=== PATIENT | female | born 1985 ===

== ENCOUNTER 2019-02-11 14:03 | Emergency (ER) | payer OTHER ==
[2019-02-11 15:12] VITALS: O2SAT 99
--- NOTE | 2019-02-11 16:03 | ED PDOC ---
HPI: Abdomen Time Seen by Provider: 02/11/19 15:00 Chief Complaint (Nursing): Abdominal Pain Chief Complaint (Provider): Abdominal pain History Per: Patient, News Copy Editor (YOLANDASOCORROChristopher PachecoPaving Rammer #[id number]) History/Exam Limitations: no limitations Onset/Duration Of Symptoms: Hrs Outside of [place] travel?: No Current Symptoms Are (Timing): Still Present Location Of Pain/Discomfort: Diffuse Quality Of Discomfort: "Pain" Associated Symptoms: Nausea, Loss Of Appetite. denies: Fever, Chills, Vomiting, Diarrhea Additional History Per: Patient Additional Complaint(s): 33yo female, otherwise well, comes to ER reporting diffuse abdominal pain since this morning. Patient reports associated nausea and generalized weakness, denies any vomiting or diarrhea. She has not taken any medications and states has only been able to tolerate minimal PO intake. No complaints. PMD: None LMP: 2 weeks ago Abnormal Vaginal Bleeding: No Last Menstral Period: 2 weeks ago Past Medical History Reviewed: Historical Data, Nursing Documentation, Vital Signs Vital Signs: Last Vital Signs Temp 98.5 F 02/11/19 15:10 Pulse 102 H 02/11/19 15:10 Resp 20 02/11/19 15:10 BP 137/88 02/11/19 15:10 Pulse Ox 99 02/11/19 15:10 Primary Care Provider: DoctorBraulio - Medical History PMH: No Chronic Diseases - Surgical History Surgical History: No Surg Hx - Family History Family History: States: No Known Family Hx - Social History Current smoker - smoking cessation education provided: No Alcohol: None Drugs: Denies - Home Medications Home Medications: Ambulatory Orders Medication Instructions Recorded Acetaminophen/Butalbital/Caf 1 - 2 tab PO Q6 PRN #20 tab 04/27/16 [Fioricet] Ondansetron ODT [Zofran ODT] 4 mg PO Q6 PRN #16 odt 04/27/16 Nitrofurantoin Macrocrystals 100 mg PO BID #14 cap 02/11/19 [Macrobid] - Allergies Allergies/Adverse Reactions: Allergies Allergy/AdvReac Type Severity Reaction Status Date / Time No Known Allergies Allergy Verified 02/11/19 15:10 Review of Systems ROS Statement: Except As Marked, All Systems Reviewed And Found Negative Constitutional: Positive for: Weakness. Negative for: Fever, Chills Gastrointestinal: Positive for: Nausea, Abdominal Pain. Negative for: Vomiting, Diarrhea Genitourinary Female: Negative for: Dysuria, Frequency, Hematuria Physical Exam - Reviewed Nursing Documentation Reviewed: Yes Vital Signs Reviewed: Yes - Physical Exam Appears: Positive for: Non-toxic, No Acute Distress Head Exam: Positive for: ATRAUMATIC, NORMAL INSPECTION, NORMOCEPHALIC Skin: Positive for: Normal Color Eye Exam: Positive for: Normal appearance ENT: Positive for: Normal ENT Inspection Neck: Positive for: Normal, Supple Cardiovascular/Chest: Positive for: Regular Rate, Rhythm Respiratory: Positive for: Normal Breath Sounds. Negative for: Respiratory Distress Gastrointestinal/Abdominal: Positive for: Bowel Sounds (good bowel sounds), Soft. Negative for: Tenderness, Guarding, Rebound Back: Positive for: Normal Inspection. Negative for: L CVA Tenderness, R CVA Tenderness Extremity: Positive for: Normal ROM. Negative for: Pedal Edema Neurological/Psych: Positive for: Awake, Alert - Laboratory Results Result Diagrams: 02/11/19 16:10 02/11/19 16:10 - ECG O2 Sat by Pulse Oximetry: 99 (RA) Pulse Ox Interpretation: Normal Medical Decision Making Medical Decision Making: Impression: Abdominal pain since this morning, no focal tenderness on abdominal exam. pt slightly tachycardic. will check urine, ct, labs for rule out electrolyte abnormality, dehydration Plan: -- Labs -- Urinalysis -- CT Abdomen/Pelvis 1723 PROCEDURE: CT Abdomen and Pelvis without Oral or IV contrast. HISTORY: abd pain COMPARISON: None available. TECHNIQUE: Contiguous axial images of the abdomen and pelvis. No oral or IV contrast administered. Coronal and Sagittal reformats generated and reviewed. Radiation dose: Total exam DLP = 324.03 mGy-cm. This CT exam was performed using one or more of the following dose reduction te chniques: Automated exposure control, adjustment of the mA and/or kV according to patient size, and/or use of iterative reconstruction technique. FINDINGS: There is limited evaluation of the solid organs without the administration of IV contrast. LOWER THORAX: No visible consolidation, pleural effusion, or pneumothorax. LIVER: Unremarkable unenhanced appearance. GALLBLADDER AND BILE DUCTS: Unremarkable unenhanced appearance. PANCREAS: Unremarkable unenhanced appearance. SPLEEN: Mm probable splenule. Otherwise unremarkable unenhanced appearance. ADRENALS: Unremarkable unenhanced appearance. KIDNEYS AND URETERS: No hydronephrosis or obstructing renal calculus. BLADDER: The urinary bladder appears unremarkable. REPRODUCTIVE: Uterus is present. APPENDIX: The appendix appears within normal limits of caliber. No secondary signs of acute appendicitis. BOWEL: The stomach is nondistended. Lack of oral contrast limits evaluation for bowel pathology. The bowel loops appear within normal limits of caliber without evidence of intestinal obstruction. PERITONEUM: No significant free fluid. No definite free air. LYMPH NODES: No bulky lymphadenopathy identified. VASCULATURE: No significant atherosclerotic calcifications of the aorta identified. No aortic aneurysm. BONES: No acute osseous abnormality is detected. OTHER FINDINGS: None. IMPRESSION: No acute findings identified. UA positive for uti. pt aware. 1810 Patient diagnosed with UTI and no other sources were found. Patient prescribed Macrobid (first dose here, tolerated po) and discharged home. Upon provider evaluation patient is medically stable, and requires no further treatment in the ED at this time. Patient will be discharged with Macrobid. Counseling was provided and all questions were answered regarding diagnosis. There is agreement to discharge plan. Return if symptoms persist or worsen. ScribeAttestation: Documented byCherri Sanchez acting as a scribe for Jeanine Russell MD. Provider ScribeAttestation: All medical record entries made by the Scribe were at my direction and personally dictated by me. I have reviewed the chart and agree that the record accurately reflects my personal performance of the history, physical exam, medical decision making, and the department course for this patient. I have also personally directed, reviewed, and agree with the discharge instructions and disposition. Disposition - Clinical Impression Clinical Impression: UTI (urinary tract infection) - Patient ED Disposition Is Patient to be Admitted: No Counseled Patient/Family Regarding: Studies Performed, Diagnosis, Need For Followup - Disposition Referrals: [facility] [Outside] [facility] [Outside] Disposition: Routine/Home Disposition Time: 18:10 Condition: IMPROVED Additional Instructions: follow up with the clinic in 1-2 days return to the ED with any worsening or concerning symptoms Prescriptions: Nitrofurantoin Macrocrystals [Macrobid] 100 mg PO BID #14 cap Instructions: Urinary Tract Infections in Adults Forms: [facility] (Liberian) Print Language: CITIZEN OF [place]
[2019-02-11 16:59] LABS: BASO % 0.2 % (0.0-2.0); EOS % 0.2 % (0.0-4.0); HEMOGLOBIN 13.7 g/dL (12.0-16.0); LYMPH # 0.8 K/uL (1.0-4.3); LYMPH % 5.5 % (20.0-40.0); MEAN CELL VOLUME 89.3 fl (81.0-99.0); MEAN CORPUSCULAR HGB CONC 33.6 g/dL (33.0-37.0); MEAN PLATELET VOLUME 8.2 fl (7.2-11.7); MONO # 0.6 K/uL (0.0-0.8); MONO % 4.3 % (0.0-10.0); NEUT % 89.8 % (50.0-75.0); NRBC % 0.1 % (0.0-0.0); PLATELET COUNT 242 K/uL (130-400); RBC 4.58 Mil/uL (3.80-5.20); RED CELL DISTRIBUTION WIDTH 13.6 % (11.5-14.5); WHITE BLOOD COUNT 14.5 K/uL (4.8-10.8)
[2019-02-11 17:06] LABS: SQUAMOUS EPITHIAL 16 /hpf (0-5); URINE BACTERIA RARE (<OCC); URINE BILIRUBIN NEGATIVE (NEGATIVE); URINE BLOOD NEGATIVE (NEGATIVE); URINE CLARITY CLOUDY (Clear); URINE COLOR YELLOW (YELLOW); URINE GLUCOSE (UA) NEG (NEGATIVE); URINE LEUKOCYTE ESTERASE MOD Leu/uL (Negative); URINE PROTEIN 100 mg/dL (NEGATIVE); URINE UROBILINOGEN 0.2-1.0 mg/dL (0.2-1.0)
[2019-02-11 17:13] LABS: ALB/GLOB RATIO 1.5 (1.0-2.1); ALBUMIN 4.3 g/dL (3.5-5.0); ALT/SGPT 30 U/L (9-52); AST/SGOT 47 U/L (14-36); BLOOD UREA NITROGEN 12 mg/dl (7-17); CALCIUM 8.5 mg/dL (8.4-10.2); GFR NON-AFRICAN AMERICAN > 60
--- NOTE | 2019-02-11 17:27 | CT ---
PROCEDURE: CT Abdomen and Pelvis without Oral or IV contrast. HISTORY: abd pain COMPARISON: None available. TECHNIQUE: Contiguous axial images of the abdomen and pelvis. No oral or IV contrast administered. Coronal and Sagittal reformats generated and reviewed. Radiation dose: Total exam DLP = 324.03 mGy-cm. This CT exam was performed using one or more of the following dose reduction techniques: Automated exposure control, adjustment of the mA and/or kV according to patient size, and/or use of iterative reconstruction technique. FINDINGS: There is limited evaluation of the solid organs without the administration of IV contrast. LOWER THORAX: No visible consolidation, pleural effusion, or pneumothorax. LIVER: Unremarkable unenhanced appearance. GALLBLADDER AND BILE DUCTS: Unremarkable unenhanced appearance. PANCREAS: Unremarkable unenhanced appearance. SPLEEN: Mm probable splenule. Otherwise unremarkable unenhanced appearance. ADRENALS: Unremarkable unenhanced appearance. KIDNEYS AND URETERS: No hydronephrosis or obstructing renal calculus. BLADDER: The urinary bladder appears unremarkable. REPRODUCTIVE: Uterus is present. APPENDIX: The appendix appears within normal limits of caliber. No secondary signs of acute appendicitis. BOWEL: The stomach is nondistended. Lack of oral contrast limits evaluation for bowel pathology. The bowel loops appear within normal limits of caliber without evidence of intestinal obstruction. PERITONEUM: No significant free fluid. No definite free air. LYMPH NODES: No bulky lymphadenopathy identified. VASCULATURE: No significant atherosclerotic calcifications of the aorta identified. No aortic aneurysm. BONES: No acute osseous abnormality is detected. OTHER FINDINGS: None. IMPRESSION: No acute findings identified.
[2019-02-11] MEDS ORDERED: Sodium Chloride 0.9% 1,000 ML IV STA (17:42)
[2019-02-11 18:09] LABS: BANDS 4 % (0-2); EOSINOPHIL 1 % (0-7); HYPOCHROMIC SLIGHT; LYMPHOCYTE 8 % (20-50); MONOCYTE 6 % (0-10); NEUTROPHIL 81 % (42-75); PLATELET ESTIMATE NORMAL (NORMAL); TOTAL CELLS COUNTED 100
[2019-02-11 18:27] VITALS: BP 125/80; PULSE 75; RESP 16; TEMP 97.9
== END 2019-02-11 18:27 | disposition home or self-care (01) ==
LOC: H.ER 14:03
DX: N39.0 Urinary tract infection, site not specified (principal); R10.9 Unspecified abdominal pain
CPT/HCPCS: 74176; 80053; 81003; 81025; 85025; 87086; 99283; J7030

== ENCOUNTER 2019-03-12 17:58 | Inpatient (IN) | payer SELFPAY ==
[2019-03-12] MEDS ORDERED: Sodium Chloride 0.9% 1,000 ML IV STA (19:57)
[2019-03-12 20:17] LABS: BASO % 0.3 % (0.0-2.0); EOS % 0.2 % (0.0-4.0); HEMOGLOBIN 13.6 g/dL (12.0-16.0); LYMPH # 1.5 K/uL (1.0-4.3); LYMPH % 11.1 % (20.0-40.0); MEAN CELL VOLUME 88.7 fl (81.0-99.0); MEAN CORPUSCULAR HEMOGLOBIN 29.9 pg (27.0-31.0); MEAN CORPUSCULAR HGB CONC 33.7 g/dL (33.0-37.0); MEAN PLATELET VOLUME 7.3 fl (7.2-11.7); MONO # 0.6 K/uL (0.0-0.8); MONO % 4.4 % (0.0-10.0); NEUT # 11.3 K/uL (1.8-7.0); RBC 4.56 Mil/uL (3.80-5.20); RED CELL DISTRIBUTION WIDTH 13.6 % (11.5-14.5); WHITE BLOOD COUNT 13.5 K/uL (4.8-10.8)
[2019-03-12 20:20] LABS: SQUAMOUS EPITHIAL 3 /hpf (0-5); URINE BILIRUBIN NEGATIVE (NEGATIVE); URINE BLOOD NEGATIVE (NEGATIVE); URINE CLARITY SLIGHTY-CLOUDY (Clear); URINE COLOR YELLOW (YELLOW); URINE GLUCOSE (UA) NEG (NEGATIVE); URINE LEUKOCYTE ESTERASE NEG Leu/uL (Negative); URINE PROTEIN 30 mg/dL (NEGATIVE); URINE UROBILINOGEN 0.2-1.0 mg/dL (0.2-1.0)
[2019-03-12 20:24] LABS: VENOUS BLOOD GAS BASE EXCESS 0.9 mmol/L (0.0-2.0); VENOUS BLOOD GAS PCO2 51 mmHg (40-60); VENOUS BLOOD GAS PO2 23 mm/Hg (30-55); VENOUS BLOOD PH 7.34 (7.32-7.43)
[2019-03-12 21:02] LABS: ALB/GLOB RATIO 1.5 (1.0-2.1); ALBUMIN 4.4 g/dL (3.5-5.0); ALT/SGPT 37 U/L (9-52); AST/SGOT 43 U/L (14-36); BLOOD UREA NITROGEN 16 mg/dl (7-17); CALCIUM 8.8 mg/dL (8.4-10.2); GFR NON-AFRICAN AMERICAN > 60
--- NOTE | 2019-03-12 21:48 | ED PDOC ---
HPI: Abdomen Time Seen by Provider: 03/12/19 19:56 Chief Complaint (Nursing): Abdominal Pain Chief Complaint (Provider): Abdominal Pain History Per: Patient History/Exam Limitations: no limitations Onset/Duration Of Symptoms: Days (x1) Current Symptoms Are (Timing): Still Present Additional Complaint(s): 33 year old female presents with lower abdominal pain associated with nonbloody, nonbilious vomiting and nausea that worsen today. She additionally reports unable to tolerate PO well. No reports of urinary complaints or vaginal discharge. Past Medical History Reviewed: Historical Data, Nursing Documentation, Vital Signs Vital Signs: Last Vital Signs Temp 98 F 03/12/19 18:50 Pulse 86 03/12/19 18:50 Resp 16 03/12/19 18:50 BP 132/90 03/12/19 18:50 Pulse Ox 98 03/12/19 18:50 Primary Care Provider: FAMILY PROVIDER,NO - Medical History PMH: No Chronic Diseases - Surgical History Surgical History: No Surg Hx - Family History Family History: States: Unknown Family Hx - Home Medications Home Medications: Ambulatory Orders Medication Instructions Recorded Acetaminophen/Butalbital/Caf 1 - 2 tab PO Q6 PRN #20 tab 04/27/16 [Fioricet] Ondansetron ODT [Zofran ODT] 4 mg PO Q6 PRN #16 odt 04/27/16 Nitrofurantoin Macrocrystals 100 mg PO BID #14 cap 02/11/19 [Macrobid] Penicillin VK [Penicillin VK Tab] 1 tab PO TID #15 tab 02/13/19 - Allergies Allergies/Adverse Reactions: Allergies Allergy/AdvReac Type Severity Reaction Status Date / Time No Known Allergies Allergy Verified 02/11/19 15:10 Review of Systems ROS Statement: Except As Marked, All Systems Reviewed And Found Negative Gastrointestinal: Positive for: Vomiting (NBNB), Abdominal Pain (lower), Other (decreased appetite) Genitourinary Female: Negative for: Dysuria, Incontinence, Hematuria, Vaginal Discharge Physical Exam - Reviewed Nursing Documentation Reviewed: Yes Vital Signs Reviewed: Yes - Physical Exam Appears: Positive for: Uncomfortable (visibly) Head Exam: Positive for: ATRAUMATIC, NORMAL INSPECTION, NORMOCEPHALIC Skin: Positive for: Normal Color Eye Exam: Positive for: Normal appearance ENT: Positive for: Normal ENT Inspection. Negative for: Pharyngeal Erythema Neck: Positive for: Normal Cardiovascular/Chest: Positive for: Regular Rate, Rhythm Respiratory: Positive for: Normal Breath Sounds. Negative for: Respiratory Distress Gastrointestinal/Abdominal: Positive for: Soft, Tenderness (lower L > R; periumbilical) Pelvic Exam: Positive for: Discharge (Thick purulent), Tender W/Cervical Motion, Tender Adnexa (Left). Negative for: Other (Erythema of cervix) Back: Positive for: Normal Inspection. Negative for: L CVA Tenderness, R CVA Tenderness Extremity: Positive for: Normal ROM (upper/lower) Neurological/Psych: Positive for: Awake, Alert, Normal Tone - Laboratory Results Result Diagrams: 03/12/19 20:12 03/12/19 20:12 Lab Results: pO2 23 mm/Hg (30-55) L 03/12/19 20:20 VBG pH 7.34 (7.32-7.43) 03/12/19 20:20 VBG pCO2 51 mmHg (40-60) 03/12/19 20:20 VBG HCO3 24.0 mmol/L 03/12/19 20:20 VBG Total CO2 29.1 mmol/L (22-28) H 03/12/19 20:20 VBG O2 Sat (Calc) 44.0 % (40-65) 03/12/19 20:20 VBG Base Excess 0.9 mmol/L (0.0-2.0) 03/12/19 20:20 VBG Potassium 3.8 mmol/L (3.6-5.2) 03/12/19 20:20 Sodium 134.0 mmol/L (132-148) 03/12/19 20:20 Chloride 102.0 mmol/L (98-107) 03/12/19 20:20 Glucose 109 mg/dL (65-105) H 03/12/19 20:20 Lactate 1.1 mmol/L (0.7-2.1) 03/12/19 20:20 FiO2 21.0 % 03/12/19 20:20 Total Bilirubin 0.3 mg/dl (0.2-1.3) 03/12/19 20:12 AST 43 U/L (14-36) H 03/12/19 20:12 ALT 37 U/L (9-52) 03/12/19 20:12 Alkaline Phosphatase 72 U/L (38-126) 03/12/19 20:12 Total Protein 7.4 G/DL (6.3-8.2) 03/12/19 20:12 Albumin 4.4 g/dL (3.5-5.0) 03/12/19 20:12 Globulin 2.9 gm/dL (2.2-3.9) 03/12/19 20:12 Albumin/Globulin Ratio 1.5 (1.0-2.1) 03/12/19 20:12 Urine Color Yellow (YELLOW) 03/12/19 20:12 Urine Clarity Slighty-cloudy (Clear) 03/12/19 20:12 Urine pH 6.0 (5.0-8.0) 03/12/19 20:12 Ur Specific [place] 1.021 (1.003-1.030) 03/12/19 20:12 Urine Protein 30 mg/dL (NEGATIVE) 03/12/19 20:12 Urine Glucose (UA) Neg mg/dL (NEGATIVE) 03/12/19 20:12 Urine Ketones Negative mg/dL (NEGATIVE) 03/12/19 20:12 Urine Blood Negative (NEGATIVE) 03/12/19 20:12 Urine Nitrate Negative (NEGATIVE) 03/12/19 20:12 Urine Bilirubin Negative (NEGATIVE) 03/12/19 20:12 Urine Urobilinogen 0.2-1.0 mg/dL (0.2-1.0) 03/12/19 20:12 Ur Leukocyte Esterase Neg Chava/uL (Negative) 03/12/19 20:12 Urine RBC (Auto) 1 /hpf (0-3) 03/12/19 20:12 Urine Microscopic WBC 2 /hpf (0-5) 03/12/19 20:12 Ur Squamous Epith Cells 3 /hpf (0-5) 03/12/19 20:12 - ECG O2 Sat by Pulse Oximetry: 98 (RA) Pulse Ox Interpretation: Normal Medical Decision Making Medical Decision Making: Time: 1955 Initial Plan: work up for severe, worsening abdominal pain. * Labs including UA * IV fluids * Zofran inj IVP * CT ABD/pelvis * Morphine IVP 2251 CT Adomen/Pelvis W IV Contrast FINDINGS: LUNG BASES: The lung bases appear clear. No pleural effusions are seen. LIVER: Unremarkable. GALLBLADDER AND BILE DUCTS: The gallbladder appears within normal limits. No radioopaque gallstones are seen. No biliary ductal dilatation is evident. PANCREAS: Unremarkable. SPLEEN: Unremarkable. ADRENAL GLANDS: Unremarkable. KIDNEYS, URETERS, AND BLADDER: The kidneys appear within normal limits. There is no hydronephrosis or hydroureter. No urinary calculi are seen. The urinary bladder appeared normal in size and configuration. STOMACH AND BOWEL: Diffuse gastric wall thickening compatible with gastritis. No evidence of bowel obstruction. There is mucosal wall thickening of the small intestinal tract with fluid in the lumen compatible with diffuse enteritis. APPENDIX: No evidence of acute appendicitis on CT examination. PERITONEUM: No free fluid. No free air. LYMPH NODES: No lymphadenopathy is evident. REPRODUCTIVE: There is inflammatory haziness identified in the mesosalpinx bilaterally thought consistent with bilateral salpingitis. A 1.5 cm left ovarian cyst is noted. VASCULATURE: No evidence of abdominal aortic aneurysm. BONES: No aggressive appearing osseous lesion. No acute osseous pathology evident. IMPRESSION: 1. Gastroenteritis. 2. Findings suggestive of bilateral salpingitis. 3. A 1.5 cm left ovarian cyst is noted. 2342 Pelvic exam shows cervical motion tenderness and left adnexa tenderness with thick purulent discharge. No erythema of cervix. Antibiotics given for PID. 0010 Patient signed out to Dr. Arredondo, pending UNDERWRITER SOLICITATION DIRECTOR evaluation. Scribe Attestation: Documented by Katelyn Miller, acting as a scribe for Mayra Maria MD. Provider Scribe Attestation: All medical record entries made by the Scribe were at my direction and personally dictated by me. I have reviewed the chart and agree that the record accurately reflects my personal performance of the history, physical exam, medical decision making, and the department course for this patient. I have also personally directed, reviewed, and agree with the discharge instructions and disposition. Disposition - Patient ED Disposition Is Patient to be Admitted: Transfer of Care - Disposition Disposition: Transfer of Care Forms: [facility] (Sinhala) Patient Signed Over To: Star Arredondo
[2019-03-12] MEDS ORDERED: Iohexol 300 100 ML IJ ONE (21:58)
[2019-03-12] MEDS ORDERED: Sodium Chloride 0.9% 50 ML IV ONE (21:58)
[2019-03-12] MEDS ORDERED: cefOXitin 2 GM in Sodium Chloride 0.9% 100 ML IVPB STA (23:43)
--- NOTE | 2019-03-13 00:14 | ED PDOC ---
- Laboratory Results Result Diagrams: 03/12/19 20:12 03/12/19 20:12 Lab Results: pO2 23 mm/Hg (30-55) L 03/12/19 20:20 VBG pH 7.34 (7.32-7.43) 03/12/19 20:20 VBG pCO2 51 mmHg (40-60) 03/12/19 20:20 VBG HCO3 24.0 mmol/L 03/12/19 20:20 VBG Total CO2 29.1 mmol/L (22-28) H 03/12/19 20:20 VBG O2 Sat (Calc) 44.0 % (40-65) 03/12/19 20:20 VBG Base Excess 0.9 mmol/L (0.0-2.0) 03/12/19 20:20 VBG Potassium 3.8 mmol/L (3.6-5.2) 03/12/19 20:20 Sodium 134.0 mmol/L (132-148) 03/12/19 20:20 Chloride 102.0 mmol/L (98-107) 03/12/19 20:20 Glucose 109 mg/dL (65-105) H 03/12/19 20:20 Lactate 1.1 mmol/L (0.7-2.1) 03/12/19 20:20 FiO2 21.0 % 03/12/19 20:20 Total Bilirubin 0.3 mg/dl (0.2-1.3) 03/12/19 20:12 AST 43 U/L (14-36) H 03/12/19 20:12 ALT 37 U/L (9-52) 03/12/19 20:12 Alkaline Phosphatase 72 U/L (38-126) 03/12/19 20:12 Total Protein 7.4 G/DL (6.3-8.2) 03/12/19 20:12 Albumin 4.4 g/dL (3.5-5.0) 03/12/19 20:12 Globulin 2.9 gm/dL (2.2-3.9) 03/12/19 20:12 Albumin/Globulin Ratio 1.5 (1.0-2.1) 03/12/19 20:12 Urine Color Yellow (YELLOW) 03/12/19 20:12 Urine Clarity Slighty-cloudy (Clear) 03/12/19 20:12 Urine pH 6.0 (5.0-8.0) 03/12/19 20:12 Ur Specific [place] 1.021 (1.003-1.030) 03/12/19 20:12 Urine Protein 30 mg/dL (NEGATIVE) 03/12/19 20:12 Urine Glucose (UA) Neg mg/dL (NEGATIVE) 03/12/19 20:12 Urine Ketones Negative mg/dL (NEGATIVE) 03/12/19 20:12 Urine Blood Negative (NEGATIVE) 03/12/19 20:12 Urine Nitrate Negative (NEGATIVE) 03/12/19 20:12 Urine Bilirubin Negative (NEGATIVE) 03/12/19 20:12 Urine Urobilinogen 0.2-1.0 mg/dL (0.2-1.0) 03/12/19 20:12 Ur Leukocyte Esterase Neg Chava/uL (Negative) 03/12/19 20:12 Urine RBC (Auto) 1 /hpf (0-3) 03/12/19 20:12 Urine Microscopic WBC 2 /hpf (0-5) 03/12/19 20:12 Ur Squamous Epith Cells 3 /hpf (0-5) 03/12/19 20:12 - ECG O2 Sat by Pulse Oximetry: 98 (RA) Pulse Ox Interpretation: Normal Medical Decision Making Medical Decision Makin Patient endorsed by Dr. Maria, pending BULK TANK DRIVER evaluation. 0053 Patient evaluated by BULK TANK DRIVER service and will be admitted for salpingitis. Case was discussed with BULK TANK DRIVER resident who spoke to Dr. Banks. Scribe Attestation: Documented by Lily Diane acting as a scribe for Star Arredondo MD. Provider Scribe Attestation: All medical record entries made by the Scribe were at my direction and personally dictated by me. I have reviewed the chart and agree that the record accurately reflects my personal performance of the history, physical exam, medical decision making, and the department course for this patient. I have also personally directed, reviewed, and agree with the discharge instructions and disposition. Disposition - Clinical Impression Clinical Impression: Salpingitis - POA Present On Arrival: None - Disposition Disposition: Admitted as In-Patient Disposition Time: 00:53 Condition: FAIR
[2019-03-13] MEDS ORDERED: Morphine 4 MG/ML VIAL IVP PRN (01:04)
[2019-03-13] MEDS ORDERED: Lactated Ringer's 1,000 ML IV ONE (01:10)
--- NOTE | 2019-03-13 01:22 | CP.PCM.HP ---
<Bob Sims - Last Filed: 03/13/19 01:22> History of Present Illness - History of Present Illness History of Present Illness: 33 y/o female with no significant PMHx presents to ER complaining of lower abdominal pain. Abdominal pain started 4 pm today, suddenly increased to 10/10, continuous, not alleviated by anything and worsened by movements. Patient also has associated nausea and vomiting but denies fever, chills, vaginal discharge, vaginal bleeding, urinary symptoms or back pain. Patient is sexually active with 1 partner in past 1 year and does not use condoms consistently. Denies any H/O STIs in the past. Denies any prior pregnancies. LMP 20 days ago, regular Q 28days lasts 3-4 days. Denies any other complains at this time. Denies taking any control use. PMHx: Denies PSHx: Denies Allergies: NKDA Meds: Denies SOcial Hx: Denies smoking/alcohol/drugs F/H: Denies ED Course: VSS CBC: WBC 13.5, CMP and UA remarkable. CT abd/pelvis consistent with B/L Salpingitis. + CMT and vaginal discharge per ED note. S/P 1 dose of Cefoxitin 2 gm and Doxycycline 100 mg IV S/P Morphine 2 gm and Zofran for nausea. Pain improved but still 8/10 pain Present on Admission - Present on Admission Any Indicators Present on Admission: No History of DVT/PE: No History of Uncontrolled Diabetes: No Urinary Catheter: No Decubitus Ulcer Present: No Review of Systems - Review of Systems Systems not reviewed;Unavailable: Acuity of Condition - Gastrointestinal Gastrointestinal: Abdominal Pain, Nausea, Vomiting - Reproductive: Female Reproductive:Female: Pelvic Pain, Vaginal Discharge Past Patient History - Past Social History Smoking Status: Never Smoked - PSYCHIATRIC Hx Substance Use: No - SURGICAL HISTORY Hx Surgeries: No Meds Allergies/Adverse Reactions: Allergies Allergy/AdvReac Type Severity Reaction Status Date / Time No Known Allergies Allergy Verified 02/11/19 15:10 Physical Exam - Constitutional Appears: Non-toxic, No Acute Distress - Head Exam Head Exam: ATRAUMATIC, NORMAL INSPECTION, NORMOCEPHALIC - Eye Exam Eye Exam: EOMI, PERRL Pupil Exam: NORMAL ACCOMODATION, PERRL - ENT Exam ENT Exam: Mucous Membranes Moist - Neck Exam Neck exam: Positive for: Normal Inspection - Respiratory Exam Respiratory Exam: Clear to Auscultation Bilateral, NORMAL BREATHING PATTERN - Cardiovascular Exam Cardiovascular Exam: REGULAR RHYTHM, +S1, +S2 - GI/Abdominal Exam GI & Abdominal Exam: Guarding, Normal Bowel Sounds, Soft, Tenderness. absent: Distended - Rectal Exam Rectal Exam: Deferred - Expanded Rectal Exam Expanded Expanded Rectal Exam: Deferred - Extremities Exam Extremities exam: Positive for: normal inspection - Back Exam Back exam: NORMAL INSPECTION - Neurological Exam Neurological exam: Alert, Oriented x3 - Psychiatric Exam Psychiatric exam: Normal Affect, Normal Mood - Skin Skin Exam: Dry, Intact, Normal Color, Warm Results - Vital Signs Recent Vital Signs: Last Vital Signs Temp 98 F 03/12/19 18:50 Pulse 86 03/12/19 18:50 Resp 16 03/12/19 18:50 BP 132/90 03/12/19 18:50 Pulse Ox 98 03/13/19 00:58 - Labs Result Diagrams: 03/12/19 20:12 03/12/19 20:12 Labs: Laboratory Results - last 24 hr 03/12/19 03/12/19 03/12/19 20:12 20:12 20:12 WBC 13.5 H RBC 4.56 Hgb 13.6 Hct 40.4 MCV 88.7 MCH 29.9 MCHC 33.7 RDW 13.6 Plt Count 254 MPV 7.3 Neut % (Auto) 84.0 H Lymph % (Auto) 11.1 L [place] % (Auto) 4.4 Eos % (Auto) 0.2 Baso % (Auto) 0.3 Neut # (Auto) 11.3 H Lymph # (Auto) 1.5 [place] # (Auto) 0.6 Eos # (Auto) 0.0 Baso # (Auto) 0.0 pO2 VBG pH VBG pCO2 VBG HCO3 VBG Total CO2 VBG O2 Sat (Calc) VBG Base Excess VBG Potassium Glucose Lactate FiO2 Sodium 135 Potassium 4.1 Chloride 100 Carbon Dioxide 26 Anion Gap 13 BUN 16 Creatinine 0.7 Est GFR ( Amer) > 60 Est GFR (Non-Af Amer) > 60 Random Glucose 115 H Calcium 8.8 Total Bilirubin 0.3 AST 43 H ALT 37 Alkaline Phosphatase 72 Total Protein 7.4 Albumin 4.4 Globulin 2.9 Albumin/Globulin Ratio 1.5 Venous Blood Potassium Urine Color Yellow Urine Clarity Slighty-cloudy Urine pH 6.0 Ur Specific [place] 1.021 Urine Protein 30 Urine Glucose (UA) Neg Urine Ketones Negative Urine Blood Negative Urine Nitrate Negative Urine Bilirubin Negative Urine Urobilinogen 0.2-1.0 Ur Leukocyte Esterase Neg Urine RBC (Auto) 1 Urine Microscopic WBC 2 Ur Squamous Epith Cells 3 03/12/19 20:20 WBC RBC Hgb Hct MCV MCH MCHC RDW Plt Count MPV Neut % (Auto) Lymph % (Auto) [place] % (Auto) Eos % (Auto) Baso % (Auto) Neut # (Auto) Lymph # (Auto) [place] # (Auto) Eos # (Auto) Baso # (Auto) pO2 23 L VBG pH 7.34 VBG pCO2 51 VBG HCO3 24.0 VBG Total CO2 29.1 H VBG O2 Sat (Calc) 44.0 VBG Base Excess 0.9 VBG Potassium 3.8 Glucose 109 H Lactate 1.1 FiO2 21.0 Sodium 134.0 Potassium Chloride 102.0 Carbon Dioxide Anion Gap BUN Creatinine Est GFR ( Amer) Est GFR (Non-Af Amer) Random Glucose Calcium Total Bilirubin AST ALT Alkaline Phosphatase Total Protein Albumin Globulin Albumin/Globulin Ratio Venous Blood Potassium 3.8 Urine Color Urine Clarity Urine pH Ur Specific [place] Urine Protein Urine Glucose (UA) Urine Ketones Urine Blood Urine Nitrate Urine Bilirubin Urine Urobilinogen Ur Leukocyte Esterase Urine RBC (Auto) Urine Microscopic WBC Ur Squamous Epith Cells Assessment & Plan - Assessment and Plan (Free Text) Assessment: 33 y/o with no significant PMHx admitted for B/L salpingitis Plan: Bilateral Salpingitis - VSS, Afebrile - S/P 1 dose of Cefoxitin 2 gm and Doxycycline 100 mg IV - CBC: WBC 13.5, CMP and UA remarkable. - CT abd/pelvis consistent with B/L Salpingitis. - Start Cefoxitin 2 gm Q6 hr - Start Doxycycline 100 mg IVPB BID - Morphine and toradol for pain - Zofran 4 mg Q4 PRN for nausea - F/U CBC, Blood Cx, Cervical Culture, GC/CHL Case discussed with Dr. Banks. Bob Sims, PGY1 <Ze Banks O - Last Filed: 03/13/19 20:01> Results - Vital Signs Recent Vital Signs: Last Vital Signs Temp 98.5 F 03/13/19 16:11 Pulse 70 06/01/19 16:11 Resp 20 03/13/19 16:11 BP 122/84 03/13/19 16:11 Pulse Ox 99 03/13/19 16:11 - Labs Result Diagrams: 03/13/19 09:15 03/12/19 20:12 Labs: Laboratory Results - last 24 hr 03/12/19 03/12/19 03/12/19 20:12 20:12 20:12 WBC 13.5 H RBC 4.56 Hgb 13.6 Hct 40.4 MCV 88.7 MCH 29.9 MCHC 33.7 RDW 13.6 Plt Count 254 MPV 7.3 Neut % (Auto) 84.0 H Lymph % (Auto) 11.1 L [place] % (Auto) 4.4 Eos % (Auto) 0.2 Baso % (Auto) 0.3 Neut # (Auto) 11.3 H Lymph # (Auto) 1.5 [place] # (Auto) 0.6 Eos # (Auto) 0.0 Baso # (Auto) 0.0 pO2 VBG pH VBG pCO2 VBG HCO3 VBG Total CO2 VBG O2 Sat (Calc) VBG Base Excess VBG Potassium Glucose Lactate FiO2 Sodium 135 Potassium 4.1 Chloride 100 Carbon Dioxide 26 Anion Gap 13 BUN 16 Creatinine 0.7 Est GFR ( Amer) > 60 Est GFR (Non-Af Amer) > 60 Random Glucose 115 H Calcium 8.8 Total Bilirubin 0.3 AST 43 H ALT 37 Alkaline Phosphatase 72 Total Protein 7.4 Albumin 4.4 Globulin 2.9 Albumin/Globulin Ratio 1.5 Venous Blood Potassium Urine Color Yellow Urine Clarity Slighty-cloudy Urine pH 6.0 Ur Specific [place] 1.021 Urine Protein 30 Urine Glucose (UA) Neg Urine Ketones Negative Urine Blood Negative Urine Nitrate Negative Urine Bilirubin Negative Urine Urobilinogen 0.2-1.0 Ur Leukocyte Esterase Neg Urine RBC (Auto) 1 Urine Microscopic WBC 2 Ur Squamous Epith Cells 3 03/12/19 03/13/19 20:20 09:15 WBC 8.4 RBC 4.37 Hgb 13.2 Hct 38.8 MCV 88.9 MCH 30.3 MCHC 34.1 RDW 13.7 Plt Count 253 MPV 7.7 Neut % (Auto) 70.0 Lymph % (Auto) 22.6 [place] % (Auto) 5.9 Eos % (Auto) 0.9 Baso % (Auto) 0.6 Neut # (Auto) 5.9 Lymph # (Auto) 1.9 [place] # (Auto) 0.5 Eos # (Auto) 0.1 Baso # (Auto) 0.1 pO2 23 L VBG pH 7.34 VBG pCO2 51 VBG HCO3 24.0 VBG Total CO2 29.1 H VBG O2 Sat (Calc) 44.0 VBG Base Excess 0.9 VBG Potassium 3.8 Glucose 109 H Lactate 1.1 FiO2 21.0 Sodium 134.0 Potassium Chloride 102.0 Carbon Dioxide Anion Gap BUN Creatinine Est GFR ( Amer) Est GFR (Non-Af Amer) Random Glucose Calcium Total Bilirubin AST ALT Alkaline Phosphatase Total Protein Albumin Globulin Albumin/Globulin Ratio Venous Blood Potassium 3.8 Urine Color Urine Clarity Urine pH Ur Specific [place] Urine Protein Urine Glucose (UA) Urine Ketones Urine Blood Urine Nitrate Urine Bilirubin Urine Urobilinogen Ur Leukocyte Esterase Urine RBC (Auto) Urine Microscopic WBC Ur Squamous Epith Cells Attending/Attestation - Attestation I have personally seen and examined this patient.: Yes I have fully participated in the care of the patient.: Yes I have reviewed all pertinent clinical information: Yes
[2019-03-13] MEDS: cefOXitin 2 GM in Sodium Chloride 0.9% 100 ML IVPB SCH ×3 (05:32→17:17)
--- NOTE | 2019-03-13 08:15 | CT ---
Date of service: 03/12/2019 PROCEDURE: CT Abdomen and Pelvis with contrast HISTORY: lower abdominal pain COMPARISON: 02/11/2019 TECHNIQUE: Contrast dose: Radiation dose: Total exam DLP = 377.14 mGy-cm. This CT exam was performed using one or more of the following dose reduction techniques: Automated exposure control, adjustment of the mA and/or kV according to patient size, and/or use of iterative reconstruction technique. FINDINGS: LOWER THORAX: Unremarkable. LIVER: Unremarkable. No gross lesion or ductal dilatation. GALLBLADDER AND BILE DUCTS: Unremarkable. PANCREAS: Unremarkable. No gross lesion or ductal dilatation. SPLEEN: Unremarkable. ADRENALS: Unremarkable. No mass. KIDNEYS AND URETERS: Unremarkable. No hydronephrosis. No solid mass. VASCULATURE: Unremarkable. No aortic aneurysm. No aortic atherosclerotic calcification or mural plaque present. BOWEL: Unremarkable. No obstruction. No gross mural thickening. APPENDIX: Normal appendix. PERITONEUM: Unremarkable. No free fluid. No free air. LYMPH NODES: Unremarkable. No enlarged lymph nodes. BLADDER: Unremarkable. REPRODUCTIVE: Infiltration in the pelvic mesenteric fat associated with the fallopian tubes suspicious for salpingitis. 1.5 centimeter left ovarian follicular cyst. BONES: No acute fracture. OTHER FINDINGS: None. IMPRESSION: Infiltration in the pelvic mesenteric fat associated with the fallopian tubes suspicious for salpingitis. 1.5 centimeter left ovarian follicular cyst.
[2019-03-13 09:46] LABS: BASO # 0.1 K/uL (0.0-0.2); BASO % 0.6 % (0.0-2.0); EOS # 0.1 K/uL (0.0-0.7); EOS % 0.9 % (0.0-4.0); HEMOGLOBIN 13.2 g/dL (12.0-16.0); LYMPH # 1.9 K/uL (1.0-4.3); LYMPH % 22.6 % (20.0-40.0); MEAN CELL VOLUME 88.9 fl (81.0-99.0); MEAN CORPUSCULAR HEMOGLOBIN 30.3 pg (27.0-31.0); MEAN CORPUSCULAR HGB CONC 34.1 g/dL (33.0-37.0); MEAN PLATELET VOLUME 7.7 fl (7.2-11.7); MONO # 0.5 K/uL (0.0-0.8); MONO % 5.9 % (0.0-10.0); NEUT # 5.9 K/uL (1.8-7.0); NRBC % 0.1 % (0.0-0.0); RBC 4.37 Mil/uL (3.80-5.20); RED CELL DISTRIBUTION WIDTH 13.7 % (11.5-14.5); WHITE BLOOD COUNT 8.4 K/uL (4.8-10.8)
[2019-03-14] MEDS: cefOXitin 2 GM in Sodium Chloride 0.9% 100 ML IVPB SCH ×3 (00:14→11:02)
[2019-03-14 08:41] VITALS: RESP 20
--- NOTE | 2019-03-14 09:14 | CP.PCM.DIS ---
Provider - Provider Date of Admission: 03/13/19 00:44 Attending physician: Ze Banks Primary care physician: None Consults: 03/12/19 23:31 Gynocology [ACLS NURSE Consult] Stat Comment: Consulting Provider: Ze Banks Consulting Physician: Ze Banks Reason for Consult: BL salpingitis Time Spent in preparation of Discharge (in minutes): 10 Diagnosis - Discharge Diagnosis (1) Salpingitis Status: Acute Comment: Acute, improving. Afebrile, leukocytosis resolved. Continue with out pt treatment regimen Doxycycline 100mg BID and Flagyl 500mg BID for 12 days. Discussed importance of condom contraception and necessity to finish antibiotics to prevent any future complications with fertility. Return to ED if worsening abdominal pain, fever, chills or vaginal discharge Hospital Course - Lab Results Lab Results: Micro Results 03/12/19 00:02 Blood Blood Culture - Preliminary NO GROWTH AFTER 24 HOURS Most Recent Lab Values WBC 8.4 K/uL (4.8-10.8) 03/13/19 09:15 RBC 4.37 Mil/uL (3.80-5.20) 03/13/19 09:15 Hgb 13.2 g/dL (12.0-16.0) 03/13/19 09:15 Hct 38.8 % (34.0-47.0) 03/13/19 09:15 MCV 88.9 fl (81.0-99.0) 03/13/19 09:15 MCH 30.3 pg (27.0-31.0) 03/13/19 09:15 MCHC 34.1 g/dL (33.0-37.0) 03/13/19 09:15 RDW 13.7 % (11.5-14.5) 03/13/19 09:15 Plt Count 253 K/uL (130-400) 03/13/19 09:15 MPV 7.7 fl (7.2-11.7) 03/13/19 09:15 Neut % (Auto) 70.0 % (50.0-75.0) 03/13/19 09:15 Lymph % (Auto) 22.6 % (20.0-40.0) 03/13/19 09:15 [place] % (Auto) 5.9 % (0.0-10.0) 03/13/19 09:15 Eos % (Auto) 0.9 % (0.0-4.0) 03/13/19 09:15 Baso % (Auto) 0.6 % (0.0-2.0) 03/13/19 09:15 Neut # (Auto) 5.9 K/uL (1.8-7.0) 03/13/19 09:15 Lymph # (Auto) 1.9 K/uL (1.0-4.3) 03/13/19 09:15 [place] # (Auto) 0.5 K/uL (0.0-0.8) 03/13/19 09:15 Eos # (Auto) 0.1 K/uL (0.0-0.7) 03/13/19 09:15 Baso # (Auto) 0.1 K/uL (0.0-0.2) 03/13/19 09:15 pO2 23 mm/Hg (30-55) L 03/12/19 20:20 VBG pH 7.34 (7.32-7.43) 03/12/19 20:20 VBG pCO2 51 mmHg (40-60) 03/12/19 20:20 VBG HCO3 24.0 mmol/L 03/12/19 20:20 VBG Total CO2 29.1 mmol/L (22-28) H 03/12/19 20:20 VBG O2 Sat (Calc) 44.0 % (40-65) 03/12/19 20:20 VBG Base Excess 0.9 mmol/L (0.0-2.0) 03/12/19 20:20 VBG Potassium 3.8 mmol/L (3.6-5.2) 03/12/19 20:20 Sodium 134.0 mmol/L (132-148) 03/12/19 20:20 Chloride 102.0 mmol/L (98-107) 03/12/19 20:20 Glucose 109 mg/dL (65-105) H 03/12/19 20:20 Lactate 1.1 mmol/L (0.7-2.1) 03/12/19 20:20 FiO2 21.0 % 03/12/19 20:20 Sodium 135 mmol/l (132-148) 03/12/19 20:12 Potassium 4.1 MMOL/L (3.6-5.0) 03/12/19 20:12 Chloride 100 mmol/L (98-107) 03/12/19 20:12 Carbon Dioxide 26 mmol/L (22-30) 03/12/19 20:12 Anion Gap 13 (10-20) 03/12/19 20:12 BUN 16 mg/dl (7-17) 03/12/19 20:12 Creatinine 0.7 mg/dl (0.7-1.2) 03/12/19 20:12 Est GFR ( Amer) > 60 03/12/19 20:12 Est GFR (Non-Af Amer) > 60 03/12/19 20:12 Random Glucose 115 mg/dL (65-105) H 03/12/19 20:12 Calcium 8.8 mg/dL (8.4-10.2) 03/12/19 20:12 Total Bilirubin 0.3 mg/dl (0.2-1.3) 03/12/19 20:12 AST 43 U/L (14-36) H 03/12/19 20:12 ALT 37 U/L (9-52) 03/12/19 20:12 Alkaline Phosphatase 72 U/L (38-126) 03/12/19 20:12 Total Protein 7.4 G/DL (6.3-8.2) 03/12/19 20:12 Albumin 4.4 g/dL (3.5-5.0) 03/12/19 20:12 Globulin 2.9 gm/dL (2.2-3.9) 03/12/19 20:12 Albumin/Globulin Ratio 1.5 (1.0-2.1) 03/12/19 20:12 Venous Blood Potassium 3.8 mmol/L (3.6-5.2) 03/12/19 20:20 Urine Color Yellow (YELLOW) 03/12/19 20:12 Urine Clarity Slighty-cloudy (Clear) 03/12/19 20:12 Urine pH 6.0 (5.0-8.0) 03/12/19 20:12 Ur Specific [place] 1.021 (1.003-1.030) 03/12/19 20:12 Urine Protein 30 mg/dL (NEGATIVE) 03/12/19 20:12 Urine Glucose (UA) Neg mg/dL (NEGATIVE) 03/12/19 20:12 Urine Ketones Negative mg/dL (NEGATIVE) 03/12/19 20:12 Urine Blood Negative (NEGATIVE) 03/12/19 20:12 Urine Nitrate Negative (NEGATIVE) 03/12/19 20:12 Urine Bilirubin Negative (NEGATIVE) 03/12/19 20:12 Urine Urobilinogen 0.2-1.0 mg/dL (0.2-1.0) 03/12/19 20:12 Ur Leukocyte Esterase Neg [place]/uL (Negative) 03/12/19 20:12 Urine RBC (Auto) 1 /hpf (0-3) 03/12/19 20:12 Urine Microscopic WBC 2 /hpf (0-5) 03/12/19 20:12 Ur Squamous Epith Cells 3 /hpf (0-5) 03/12/19 20:12 - Hospital Course Hospital Course: [place]: [id number] Pt is a 33 yo F with no significant PMHx presented to the ED on 03/13/19 with lower abdominal pain, nausea/vomiting, and vaginal discharge admitted due to Salpingitis. Pelvic exam- cervical motion tenderness, L adnexal tenderness, thick purulent discharge. No erythema of cervix. ED course-WBC 13.5 U/A unremarkable, Fluids, Zofran, Morphine, CT AB/Pel-Findings suggestive of bilateral salpingitis, 1.5 cm left ovarian cyst. Received 48hrs of treatment with Cefoxitin 2 gm Q6h and Doxycycline 100 mg IV BID. Blood culture- no growth @ 24hrs. Genital culture and GC culture pending. Today pt reports significant improvement in abdominal pain, now 3-4/10 LLQ, denies fever, chills, nausea, vomiting, or dysuria. Ambulating well, tolerating oral intake. Hemodynamically stable for discharge with Doxycycline 100mg BID and Flagyl 500mg BID for 12 days (14 days total). Follow up with the [facility] for culture results and further dock attendant care. - Date & Time of H&P Date of H&P: 03/13/19 Time of H&P: 01:14 Discharge Exam - Head Exam Head Exam: ATRAUMATIC, NORMAL INSPECTION, NORMOCEPHALIC - Eye Exam Eye Exam: EOMI, Normal appearance - ENT Exam ENT Exam: Mucous Membranes Moist - Respiratory Exam Respiratory Exam: Clear to PA & Lateral - Cardiovascular Exam Cardiovascular Exam: RRR, +S1, +S2 - GI/Abdominal Exam GI & Abdominal Exam: Guarding (LLQ), Normal Bowel Sounds, Soft, Tenderness (LLQ ). absent: Rebound, Rigid - Extremities Exam Extremities exam: normal inspection - Neurological Exam Neurological exam: Alert, Oriented x3 Discharge Plan - Discharge Medications Prescriptions: Doxycycline Hyclate [Doryx] 100 mg PO BID 12 Days #24 cap Metronidazole [Flagyl] 500 mg PO BID 12 Days #24 tablet - Follow Up Plan Condition: FAIR Disposition: HOME/ ROUTINE Patient education suggested?: Yes Instructions: Pelvic Inflammatory Disease Additional Instructions: Follow up with [facility] in 1 week. Continue Doxycycline and Flagyl twice a day for 12 days Return to ED if worsening abdominal pain, fever, chills or vaginal discharge Discussed importance of condom contraception and necessity to finish antibiotics to prevent any future complications with fertility Referrals: [facility] [place] [Outside]
[2019-03-14 13:02] VITALS: BP 115/76; PULSE 73; TEMP 98.4; O2SAT 98
== END 2019-03-14 13:37 | disposition home or self-care (01) | DRG 759 ==
LOC: H.ER 17:58 → H.ERHOLD 03-13 00:44 → H.PEDS 03-13 04:11
PROVIDERS: ADMIT Obstetrics & Gynecology; ATTEND Obstetrics & Gynecology
DX: N70.01 Acute salpingitis (principal); N83.202 Unspecified ovarian cyst, left side